=== PATIENT | male | born 1970 | race Caucasian/White ===

== ENCOUNTER 2016-07-17 14:52 | Emergency (ER) | payer OTHER ==
[~2016-07-17] VITALS: Ht 182.9 cm; Wt 104.3 kg
[2016-07-17 15:34] VITALS: BP 144/92
[2016-07-17] MEDS ORDERED: DIPHTH,PERTUSS(ACELL),TET TOX 0.5 ML DISP.SYRIN. VAX IM ONE (15:45)
--- NOTE | 2016-07-17 16:13 | PHYS DOC ---
Past Medical History Past Medical History: No Pertinent History Past Surgical History: Other Additional Past Surgical Histo: hernia repair, jaw fx Alcohol Use: Occasionally Drug Use: None Adult General Chief Complaint Chief Complaint: LACERATION/AVULSION HPI HPI Patient is a 46 year old male presents emergency room the complain of a laceration to left side of the scalp after having the bandage from a [employer] machine slight off the wall and strike on top of the head while he was assembling it. Patient denies loss of consciousness. Patient denies any visual disturbances, nausea or vomiting. He denies any other areas of injury or concerns at this time. Patient does not take anticoagulants. Review of Systems Review of Systems Constitutional: Denies fever or chills [] Eyes: Denies change in visual acuity, redness, or eye pain [] HENT: Denies nasal congestion or sore throat [] Respiratory: Denies cough or shortness of breath [] Cardiovascular: No additional information not addressed in HPI [] GI: Denies abdominal pain, nausea, vomiting, bloody stools or diarrhea [] : Denies dysuria or hematuria [] Musculoskeletal: Denies back pain or joint pain [] Integument: Denies rash or skin lesions [] Neurologic: Denies headache, focal weakness or sensory changes [] Endocrine: Denies polyuria or polydipsia [] Current Medications Current Medications Current Medications Medications (Trade) Dose Ordered Sig/Namita Start Time Stop Time Status Last Admin Dose Admin Diphtheria/ Tetanus/Acell Pertussis (Boostrix) 0.5 ml ONCE ONCE 07/17/16 15:45 07/17/16 16:10 DC 07/17/16 16:15 0.5 ML Lidocaine/Sodium Bicarbonate (Buffered Lidocaine 1%) 20 ml 1X ONCE 07/17/16 16:15 07/17/16 16:16 DC 07/17/16 16:16 20 ML Allergies Allergies Allergies Coded Allergies Type Severity Reaction Last Updated Verified No Known Drug Allergies 07/17/16 No Physical Exam Physical Exam Constitutional: Well developed, well nourished, no acute distress, non-toxic appearance. [] HENT: Normocephalic, bilateral external ears normal, oropharynx moist, no oral exudates, nose normal. 2.5 cm laceration to the left parietal scalp. There is mild swelling about the laceration. There is no active bleeding. There is no palpable depression or crepitation to the skull. Eyes: PERRLA, EOMI, conjunctiva normal, no discharge. [] Neck: Normal range of motion, no tenderness, supple, no stridor. Cardiovascular:Heart rate regular rhythm, no murmur [] Lungs & Thorax: Bilateral breath sounds clear to auscultation [] Abdomen: Bowel sounds normal, soft, no tenderness, no masses, no pulsatile masses. [] Skin: Warm, dry, no erythema, no rash. [] Back: No tenderness, no CVA tenderness. [] Extremities: No tenderness, no cyanosis, no clubbing, ROM intact, no edema. [] Neurologic: Alert and oriented X 3, normal motor function, normal sensory function, no focal deficits noted. Psychologic: Affect normal, judgement normal, mood normal. [] Current Patient Data Vital Signs Vital Signs Date Time Temp Pulse Resp B/P Pulse Ox O2 Delivery O2 Flow Rate FiO2 07/17/16 15:34 98.3 66 16 96 Room Air 98.3 EKG EKG [] Radiology/Procedures Radiology/Procedures Procedure note: 2.5 cm scalp laceration to the left parietal region was anesthetized with buffered 1% lidocaine. Was cleansed with Betadine solution and rinsed with saline. Wound was explored for foreign bodies. No foreign bodies were found. Wound margins were approximated utilizing surgical david for total of 5. Patient tolerated the procedure well. Course & Med Decision Making Course & Med Decision Making Pertinent Labs and Imaging studies reviewed. (See chart for details) [] Dragon Disclaimer Dragon Disclaimer This electronic medical record was generated, in whole or in part, using a voice recognition dictation system. Departure Departure Impression: Primary Impression: Scalp laceration Disposition: 01 HOME, SELF-CARE Condition: IMPROVED Patient Instructions: Head Injury, Adult, [id number], Laceration Care, Adult , [id number], Staple Wound Closure, [id number] Additional Instructions: 1. David need to be removed within 7 days. You can be seen by your primary care doctor's office for this. 2. Review the discharge instructions for self-care and reasons to return the emergency department. 3. Acetaminophen every 4-6 hours or ibuprofen every 8 hours for the discomfort. MONTY HAYNES Jul 17, 2016 16:13
[2016-07-17] MEDS ORDERED: LIDOCAINE 1% / SOD BICARB 8.4% 20 ML VIAL. IJ ONE (16:15)
== END 2016-07-17 16:38 | disposition home or self-care (01) ==
LOC: ER 14:52
DX: S01.01XA Laceration without foreign body of scalp, initial encounter (principal); W22.8XXA Striking against or struck by other objects, initial encounter; Y93.89 Activity, other specified; Y99.8 Other external cause status; Y92.89 Other specified places as the place of occurrence of the external cause
CPT/HCPCS: 12001; 90471; 90715; 99283-25